=== PATIENT | male | born 1935 | race Caucasian/White ===

== ENCOUNTER 2021-01-04 14:39 | Emergency (ER) | payer MEDICARE, OTHER ==
--- NOTE | 2021-01-04 15:23 | EDM.PDOC ---
ED HPI GENERAL MEDICAL PROBLEM - General Chief Complaint: Laceration Stated Complaint: FELL OFF SCOOTER/FACE LACERATION Time Seen by Provider: 01/04/21 15:04 Source of Information: Reports: Patient, Family History Limitations: Reports: No Limitations - History of Present Illness INITIAL COMMENTS - FREE TEXT/NARRATIVE: Patient presents from [facility] after falling out of his motorized wheelchair. He was outside and leaned forward to pull some weeds when he fell out. He denies LOC, vision change. Neck hurts a little with rotation of head. The chair didn't fall on him but tipped forward "kicked me out" and sat back in normal position. He takes warfarin and last INR was 2.0 five days ago. Face Pain Score (Numeric/FACES): 5 - Related Data Allergies Allergy/AdvReac Type Severity Reaction Status Date / Time lisinopril Allergy Renal Verified 01/04/21 14:52 Failure Sulfa (Sulfonamide Allergy Cannot Verified 01/04/21 14:52 Antibiotics) Remember Home Meds: Home Meds Levothyroxine 1 tab PO DAILY 12/06/13 [History] Acetaminophen 650 mg PO QID PRN 01/04/21 [History] Acetaminophen [Tylenol] 650 mg PO DAILY 01/04/21 [History] Aspirin 81 mg PO DAILY 01/04/21 [History] Bumetanide 1 mg PO BID 01/04/21 [History] Cholecalciferol (Vitamin D3) [Vitamin D3] 2,000 unit PO DAILY 01/04/21 [History] Fenofibrate 160 mg PO DAILY 01/04/21 [History] Ferrous Sulfate 325 mg PO TID 01/04/21 [History] Gabapentin [Neurontin] 100 mg PO BID 01/04/21 [History] Insulin Aspart [Novolog Flexpen] 15 units INJECT BID 01/04/21 [History] Insulin Aspart [Novolog Flexpen] 19 units INJECT DAILY@1800 01/04/21 [History] Insulin Glarg,Human.Rec.Analog [Lantus] 30 units INJECT BEDTIME 01/04/21 [History] Isosorbide Dinitrate 10 mg PO TID 01/04/21 [History] Linagliptin [Tradjenta] 5 mg PO DAILY 01/04/21 [History] Metoprolol Succinate [Toprol XL] 25 mg PO DAILY 01/04/21 [History] Pantoprazole [ProTONIX] 40 mg PO DAILY 01/04/21 [History] Potassium Chloride [Klor-Con M20] 20 meq PO DAILY 01/04/21 [History] Vit B Cmplx 3/Fa/Vit C/Biotin [[facility] Rx Tablet] 1 tab PO DAILY 01/04/21 [History] Vitamin E 400 unit PO DAILY 01/04/21 [History] Warfarin [Coumadin] 2.5 mg PO ASDIRECTED 01/04/21 [History] Warfarin [Coumadin] 5 mg PO ASDIRECTED 01/04/21 [History] atorvaSTATin [Lipitor] 20 mg PO BEDTIME 01/04/21 [History] metOLazone [Metolazone] 2.5 mg PO ASDIRECTED 01/04/21 [History] polyethylene glycoL 3350 [MiraLAX] 17 gm PO DAILY 01/04/21 [History] Social & Family History - Tobacco Use Tobacco Use Status *Q: Former Tobacco User Used Tobacco, but Quit: Yes Month/Year Tobacco Last Used: 04/1962 Second Hand Smoke Exposure: No - Caffeine Use Caffeine Use: Reports: Coffee - Recreational Drug Use Recreational Drug Use: No ED ROS GENERAL - Review of Systems Review Of Systems: See Below Constitutional: Denies: Fever, Chills, Malaise, Weakness HEENT: Denies: Ear Pain, Throat Pain, Vision Change Respiratory: Denies: Shortness of Breath, Cough Cardiovascular: Denies: Chest Pain, Lightheadedness, Syncope GI/Abdominal: Denies: Abdominal Pain, Nausea, Vomiting Musculoskeletal: Reports: Neck Pain, Hand Pain (left, hurts to make a fist). Denies: Shoulder Pain, Arm Pain, Back Pain Skin: Denies: Cyanosis, Jaundice, Mottled, Pallor, Diaphoresis Neurological: Denies: Confusion, Dizziness, Headache, Seizure, Trouble Speaking ED EXAM, SKIN/RASH Exam: See Below Exam Limited By: No Limitations General Appearance: Alert, WD/WN, No Apparent Distress Eye Exam: Bilateral Eye: EOMI, Normal Inspection, PERRL Ears: Normal External Exam, Normal Canal, Hearing Grossly Normal, Normal TMs Nose: Normal Inspection, No Blood Throat/Mouth: Normal Inspection, Normal Lips, Normal Voice, No Airway Compromise Head: Normocephalic, Other (left cheek laceration) Neck: Tender Lateral (left), Other (some pain with lateral rotation bilat) Respiratory/Chest: No Respiratory Distress, Lungs Clear, Normal Breath Sounds Cardiovascular: Regular Rate, Rhythm, No Murmur, Other (CHF related moderate edema bilat LE) GI/Abdominal: Normal Bowel Sounds, Soft, Non-Tender, No Organomegaly, No Dist ention Back Exam: Normal Inspection, Full Range of Motion Extremities: Pedal Edema, Other (left 2nd metacarpal tender to palpation or making a fist; no deformity or crepitus. right shoulder chronic limited ROM.) Neurological: Alert, Oriented, CN II-XII Intact, Normal Cognition, No Motor/Sensory Deficits Psychiatric: Normal Affect, Normal Mood Skin: Warm, Dry, Normal Color, No Rash ED SKIN PROCEDURES - Laceration/Wound Repair Left Upper Cheek Appearance: Subcutaneous, Irregular (flap) Distal NVT: Neuro & Vascular Intact Anesthetic Type: Local Local Anesthesia - Lidocaine (Xylocaine): 1% with EPI Local Anesthetic Volume: 3cc Skin Prep: Chlorhexidine (Hibiciens) Exploration/Debridement/Repair: Wound Explored, In a Bloodless Field, Explored to Base, Minimal Debridement Closed with: Sutures Lac/Wound length In cm: 3 Suture Size: 5-0 # of Sutures: 8 Suture Type: Nylon, Interrupted, Simple Sterile Dressing Applied: None (topical antibiotic ointment) Tetanus Status Addressed: Yes (2019) Complications: No Course - Vital Signs Last Recorded V/S: Last Vital Signs Temp 96.9 F 01/04/21 14:44 Pulse 70 01/04/21 14:44 Resp 20 01/04/21 14:44 BP 127/88 01/04/21 14:44 Pulse Ox 99 01/04/21 14:44 - Orders/Labs/Meds Orders: Active Orders 24 hr Category Date Time Status INR,PT,PROTHROMBIN TIME [COAG] Stat Lab 01/04/21 15:17 Ordered Meds: Medications Discontinued Medications Generic Name Dose Route Start Last Admin Trade Name Freq PRN Reason Stop Dose Admin Lidocaine/Epinephrine Confirm 01/04/21 16:24 Lidocaine 1% With Epinephrine 1:100,000 20 Ml Mdv Administered 01/04/21 16:25 Dose 20 ml .ROUTE .STK-MED ONE - Re-Assessments/Exams Free Text/Narrative Re-Assessment/Exam: 01/04/21 16:30 CTs and xrays show no bleeds, fractures or dislocations. 01/04/21 17:00 Discussed findings and recommendations with patient and daughter and granddaughter. Sterile technique was used to close wound as above. Patient tolerated it well. Patient discharged back to [facility] in stable condition. Departure - Departure Time of Disposition: 16:53 Disposition: DC/Tfer to SNF 03 Condition: Good Clinical Impression: Facial laceration Qualifiers: Encounter type: initial encounter Qualified Code(s): S01.81XA - Laceration without foreign body of other part of head, initial encounter Fall from wheelchair Qualifiers: Encounter type: initial encounter Qualified Code(s): W05.0XXA - Fall from non- moving wheelchair, initial encounter - Discharge Information Instructions: Facial Laceration, [id number] Referrals: Fatimah Crawley PA-C [Primary Care Provider] - Forms: ED Department Discharge Additional Instructions: Keep wound clean. You may shower or wash under fresh running water but not in tub until sutures are removed. After washing, apply a thin layer of topical antibiotic ointment or petroleum jelly 1-2x/day. Follow up with your PCP in 10 days for suture removal. If any problems recheck in clinic or ER as needed. Sepsis Event Note (ED) - Evaluation Sepsis Screening Result: No Definite Risk - Focused Exam Vital Signs: Vital Signs Temp Pulse Resp BP Pulse Ox 01/04/21 14:44 96.9 F 70 20 127/88 99 - My Orders Last 24 Hours: My Active Orders 01/04/21 15:17 INR,PT,PROTHROMBIN TIME [COAG] Stat - Assessment/Plan Last 24 Hours: My Active Orders 01/04/21 15:17 INR,PT,PROTHROMBIN TIME [COAG] Stat
--- NOTE | 2021-01-04 16:05 | CT ---
[id number] CT/CT Head WO IV EXAM: CT Head WO IV CLINICAL DATA: FALL, NECK PAIN. COMPARISON STUDY: None FINDINGS: No intracranial hemorrhage, extra-axial fluid collection, mass, or acute ischemia. No hydrocephalus. Bilateral symmetric parenchymal atrophy throughout both cerebral hemispheres. Findings are nonspecific but commonly seen as sequela of chronic small vessel disease. Densely calcified atherosclerotic plaque throughout the intracranial segments of both internal carotid arteries. Calvarium intact. Paranasal sinuses and mastoid air cells are clear. IMPRESSION: No acute findings in the brain. Barry Baeza MD 01/04/21 [id number] Thank you for allowing us to participate in the care of your patient.
--- NOTE | 2021-01-04 16:09 | CT ---
[id number] CT/CT Cervical Spine WO IV EXAM: CT Cervical Spine WO IV INDICATION: FALL, NECK PAIN. ON WARFARIN AND HAS LEFT CHEEK COMPARISON: None. DISCUSSION: No fracture or compression deformity Extensive changes of advanced spondylosis throughout the cervical spine. Findings include degenerative anterolisthesis at C4-5 proximally 5 mm. Multiple levels of severe intervertebral disc height loss as well as ankylosis across numerous disc spaces. Postsurgical change in the soft tissues of the neck suggesting prior thyroidectomy. Correlate with surgical history is and was provided. Densely calcified atherosclerotic plaque in both carotid arteries. IMPRESSION: Within limitations of diffusely advanced spondylosis, no evidence of an acute fracture. Other findings are described above. Barry Baeza MD 01/04/21 2271 Thank you for allowing us to participate in the care of your patient.
--- NOTE | 2021-01-04 16:10 | CR ---
[id number] RAD/RAD Hand Left 3V Exam: RAD Hand Left 3V Indication:PAIN AFTER FALL. Comparison: No prior imaging for comparison. Discussion/Impression: No evidence of an acute fracture or dislocation. 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 Densely calcified atherosclerotic plaque in the distal forearm extending into the hand. Barry Baeza MD 01/04/21 0948 Thank you for allowing us to participate in the care of your patient.
[2021-01-04] MEDS ORDERED: Lidocaine 1% with EPINEPHrine 1:100,000 20 ML MDV ONE (16:24)
[2021-01-04] MEDS ORDERED: Bacitracin/Neomycin/Polymyxin B Oint 0.9 GM U/D Packet ONE (16:53)
== END 2021-01-04 17:10 ==
LOC: KA.ED 14:39
DX: S01.412A Laceration without foreign body of left cheek and temporomandibular area, initial encounter (principal); Z88.2 Allergy status to sulfonamides; Z88.8 Allergy status to other drugs, medicaments and biological substances; Z87.891 Personal history of nicotine dependence; Z79.01 Long term (current) use of anticoagulants; Z79.899 Other long term (current) drug therapy; Z79.4 Long term (current) use of insulin; W05.0XXA Fall from non-moving wheelchair, initial encounter
CPT/HCPCS: 12013; 36415; 70450; 72125; 73130-LT; 85610; 99283; 99284-25